=== PATIENT | female | born 1980 | race Caucasian/White ===

== ENCOUNTER 2017-02-08 22:53 | Emergency (ER) | payer OTHER ==
[~2017-02-08] VITALS: Ht 160 cm; Wt 55.4 kg
[2017-02-08 23:38] LABS: HEMATOCRIT 41.6 % (36.0-46.0); MCHC 33.7 G/DL (30.0-36.0); MCV 92.2 FL (83-99); MEAN PLAT.VOLUME 11.2 uM^3 (9.5-12.4); PLATELET COUNT 205 K/uL (156-360); RBC DIS.WIDTH-CV 12.7 % (11.8-14.6); RBC DIS.WIDTH-SD 43.3 % (39-53); RED BLOOD COUNT 4.51 M/uL (3.80-5.20); WHITE BLOOD COUNT 13.5 K/uL (4.1-10.2)
[2017-02-09 00:03] LABS: TROP-I INTERPRETATION NEGATIVE; TROPONIN-I < 0.01 ng/mL (0.0-0.30)
[2017-02-09 00:46] VITALS: BP 138/87
[2017-02-09 03:01] LABS: CHLORIDE 107 mEq/L (99-109); POTASSIUM 4.4 mEq/L (3.7-5.4)
[2017-02-09 03:02] LABS: SODIUM 138 mEq/L (136-147)
[2017-02-09 03:03] LABS: GLUCOSE 87 mg/dL (70-99)
[2017-02-09 03:05] LABS: ANION GAP 14 MEQ/L (2-14)
[2017-02-09 03:07] LABS: GFR ESTIMATE (CALCULATED) > 59 mL/min/
[2017-02-09 03:08] LABS: UREA NITROGEN (BUN) 10 mg/dL (9-23)
== END 2017-02-09 00:47 | disposition left against medical advice (07) ==
LOC: EME 22:53
DX: T40.5X1A Poisoning by cocaine, accidental (unintentional), initial encounter (principal); R07.9 Chest pain, unspecified; F14.10 Cocaine abuse, uncomplicated
CPT/HCPCS: 71020; 80048; 84484; 85027; 93005; 99281; 99284

== ENCOUNTER 2017-03-28 10:47 | Emergency (ER) | payer OTHER ==
[~2017-03-28] VITALS: Ht 160 cm; Wt 55.8 kg
[2017-03-28] MEDS ORDERED: NORCO 5/3251 TABLET PO (12:30)
[2017-03-28] MEDS ORDERED: MOTRIN600 MG PO (12:30)
[2017-03-28 13:07] VITALS: BP 115/72
== END 2017-03-28 13:11 | disposition home or self-care (01) ==
LOC: EXP 10:47 → EME 10:47 → EXP 13:11
PROC: 2W3DX1Z Immobilization of Left Lower Arm using Splint (ICD-10-PCS; principal; 2017-03-28)
DX: S62.615A Displaced fracture of proximal phalanx of left ring finger, initial encounter for closed fracture (principal); W21.05XA Struck by basketball, initial encounter; Y93.67 Activity, basketball
CPT/HCPCS: 73130; 99281; 99284